=== PATIENT | female | born 1950 | race Caucasian/White ===

== ENCOUNTER 2017-03-12 14:41 | Observation (INO) ==
--- NOTE | 2017-03-12 15:29 | Emergency Department Note ---
Disposition Clinical Impression: Chest pain Qualifiers: Chest pain type: other chest pain Qualified Code(s): R07.89 - Other chest pain ; R07.8 - Other chest pain Disposition: Admitted As Inpatient Condition: Fair Chest Pain HPI - General Chief Complaint: ED Chest Pain Stated Complaint: CP Time Seen by Provider: 03/12/17 14:50 Source: patient, EMS Limitations: no limitations Vital Signs Reviewed: Yes Nursing Notes Reviewed: Yes - History of Present Illness HPI Narrative: Presents with chest pain which is sharp and lasted for 20 minutes and is now resolved. Started at about 2:15 today. The pain is pleuritic. Exertional in the sense started when she was walking to get the mail at her daughter's house. Does have associated diaphoresis and dyspnea . No radiation. No pain or swelling of the lower extremities. No change when she rotates her torso and denies any history of chest wall strain. Social history: No smoking. Family history: Negative for heart disease Severity scale (1-10): 2 - Related Data Home Medications Medication Instructions Recorded Confirmed Aspirin Enteric Coated [Aspirin EC] 81 mg PO DAILY 03/12/17 03/12/17 Baclofen [Lioresal] 10 mg PO HS 03/12/17 03/12/17 Levothyroxine [Synthroid] 125 mcg PO 0630 03/12/17 03/12/17 Meloxicam [Mobic] 15 mg PO DAILY 03/12/17 03/12/17 Pravastatin Sodium [Pravachol] 20 mg PO HS 03/12/17 03/12/17 Allergies Allergy/AdvReac Type Severity Reaction Status Date / Time etodolac [From Lodine] Allergy Hives Verified 10/29/16 20:55 Review of Systems: Constitutional: No fever Vision: No blurred vision ENT: + rhinorrhea Respiratory: No cough Allergic: No allergies : No blood in urine GI: No blood in stool Hematologic: No bruising Dermatologic: No skin rash Musculoskeletal: No pain in the extremities Neuro: No numbness of the extremities Chest Pain PMH - Past Medical History Medical history: Reports: hyperlipidemia, thyroid disease Psychiatric history: Reports: 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 - Social History Smoking Status: Never smoker Alcohol use: Reports: none Drug use: Reports: none Physical Exam CONSTITUTIONAL: Well-appearing; well-nourished; A&O X 3, in no apparent distress HEAD: Normocephalic; atraumatic EYES: PERRL, no scleral icterus NOSE: The nose is normal in appearance without rhinorrhea NECK: No JVD or distended neck veins RESP: Normal chest excursion with respiration; breath sounds clear and equal bilaterally; no wheezes, rhonchi, or rales CARD: Regular rhythm, without murmurs, rub or gallop ABD: Non-distended; non-tender, soft, without rigidity, rebound or guarding,no pulsatile mass CHEST: Normal appearance. Does have significant pain with palpation anterior chest wall with does cause her to draw and examined facial wincing SKIN: Normal for age and race; warm and dry without diaphoresis ; no apparent lesions EXTREMITIES: Pulses are 2 plus and equal times 4 extremities, no peripheral edema or calf muscle pain - General Limitations: no limitations General appearance: alert, in no apparent distress Course Vital Signs Temperature 98.4 F 03/12/17 14:42 Pulse Rate 77 03/12/17 14:42 Respiratory Rate 18 03/12/17 14:42 Blood Pressure 134/106 03/12/17 14:42 O2 Sat by Pulse Oximetry 95 03/12/17 14:42 Temperature 98.4 F 03/12/17 14:42 Pulse Rate 85 03/12/17 18:45 Respiratory Rate 18 03/12/17 18:45 Blood Pressure 122/74 03/12/17 18:45 O2 Sat by Pulse Oximetry 95 03/12/17 18:45 Oxygen Delivery Oxygen Delivery Room Air Chest Pain - MDM Narrative Medical decision making narrative: I did review the patient's EKG which shows normal sinus rhythm with rate of 72 without acute ischemic change. The patient does have labs ordered which are pending. This point symptoms are more suggestive of musculoskeletal pain however results are pending. She will be watched closely on a historical records administrator and pulse oximeter. 1530 - Medical Records Medical records reviewed: Yes I reviewed the patient's medical records. - Lab Data Lab results reviewed: Yes I reviewed the patient's lab results. Result diagrams: 03/12/17 15:24 03/12/17 15:24 Lab Results 03/12/17 03/12/17 03/12/17 Range/Units 15:24 15:24 15:24 WBC 6.6 (4.3-11.1) K/mcL RBC 4.62 (3.82-4.97) M/mcL Hgb 12.8 (11.5-15.4) g/dL Hct 41.0 (35.3-44.9) % MCV 88.7 (83.0-100.0) fL MCH 27.7 L (28.0-33.3) pg MCHC 31.2 L (31.6-35.5) g/dL RDW 14.5 (11.5-14.5) % Plt Count 194 (140-400) K/mcL MPV 11.0 (9.4-12.4) fL Immature Gran % 0.3 (0-4) % Seg Neutrophils % 68.4 % Lymphocytes % 16.6 % Monocytes % 7.5 % Eosinophils % 6.1 % Basophils % 1.1 % Neutrophils # 4.5 (1.6-8.9) K/mcL Lymphocytes # 1.1 (0.6-4.6) K/mcL Monocytes # 0.5 (0.0-1.3) K/mcL Eosinophils # 0.4 (0.0-0.6) K/mcL Basophils # 0.1 (0.0-0.2) K/mcL D-Dimer (0-500) ng/mLFEU Sodium 141 (136-145) mEq/L Potassium 4.2 (3.5-4.5) mEq/L Chloride 108 (98-109) mEq/L Carbon Dioxide 26 (19-29) mEq/L BUN 25 H (7-20) mg/dL Creatinine 0.77 (0.57-1.11) mg/dL Est GFR ( Amer) > 60 (> 60) Est GFR (Non-Af Amer) > 60 (> 60) BUN/Creatinine Ratio 32 H (6-26) Glucose 97 (70-99) mg/dL Calculated Osmolality 296 (280-300) Calcium 9.0 (8.6-10.8) mg/dL Troponin I 0.00 (0-0.03) ng/mL 03/12/17 Range/Units 15:26 WBC (4.3-11.1) K/mcL RBC (3.82-4.97) M/mcL Hgb (11.5-15.4) g/dL Hct (35.3-44.9) % MCV (83.0-100.0) fL MCH (28.0-33.3) pg MCHC (31.6-35.5) g/dL RDW (11.5-14.5) % Plt Count (140-400) K/mcL MPV (9.4-12.4) fL Immature Gran % (0-4) % Seg Neutrophils % % Lymphocytes % % Monocytes % % Eosinophils % % Basophils % % Neutrophils # (1.6-8.9) K/mcL Lymphocytes # (0.6-4.6) K/mcL Monocytes # (0.0-1.3) K/mcL Eosinophils # (0.0-0.6) K/mcL Basophils # (0.0-0.2) K/mcL D-Dimer 2601 H (0-500) ng/mLFEU Sodium (136-145) mEq/L Potassium (3.5-4.5) mEq/L Chloride (98-109) mEq/L Carbon Dioxide (19-29) mEq/L BUN (7-20) mg/dL Creatinine (0.57-1.11) mg/dL Est GFR ( Amer) (> 60) Est GFR (Non-Af Amer) (> 60) BUN/Creatinine Ratio (6-26) Glucose (70-99) mg/dL Calculated Osmolality (280-300) Calcium (8.6-10.8) mg/dL Troponin I (0-0.03) ng/mL - Radiology Data Radiology results reviewed: Yes I reviewed the patient's radiology results.
[2017-03-12 15:35] LABS: Basophils # 0.1 K/mcL (0.0-0.2); Basophils % 1.1 %; Eosinophils # 0.4 K/mcL (0.0-0.6); Eosinophils % 6.1 %; Hemoglobin 12.8 g/dL (11.5-15.4); Immature Granulocytes % 0.3 % (0-4); Lymphocytes # 1.1 K/mcL (0.6-4.6); Lymphocytes % 16.6 %; Mean Corpuscular HGB Conc 31.2 g/dL (31.6-35.5); Mean Corpuscular Hemoglobin 27.7 pg (28.0-33.3); Mean Corpuscular Volume 88.7 fL (83.0-100.0); Monocytes # 0.5 K/mcL (0.0-1.3); Monocytes % 7.5 %; Neutrophils # 4.5 K/mcL (1.6-8.9); Platelet Count 194 K/mcL (140-400); Red Blood Count 4.62 M/mcL (3.82-4.97); Red Cell Distribution Width 14.5 % (11.5-14.5); Segmented Neutrophils % 68.4 %
[2017-03-12 15:45] LABS: Carbon Dioxide 26 mEq/L (19-29); Chloride 108 mEq/L (98-109); Potassium 4.2 mEq/L (3.5-4.5); Sodium 141 mEq/L (136-145)
[2017-03-12 15:57] LABS: BUN/Creatinine Ratio 32 (6-26); Glucose 97 mg/dL (70-99); Osmolality,Calculated 296 (280-300); eGFR For African Americans > 60 (> 60); eGFR For Non-African Americans > 60 (> 60)
[2017-03-12 15:58] LABS: Blood Urea Nitrogen 25 mg/dL (7-20)
[2017-03-12] MEDS ORDERED: Azithromycin 500 MG in D5% in Water 250 ML IVPB ONE (18:32)
[2017-03-12] MEDS ORDERED: *HR* HYDROcodone/Acet 5/325 mg TABLET PO PRN (20:29)
[2017-03-12] MEDS ORDERED: Naloxone 0.4 MG/ML INJ IVP PRN (20:29)
[2017-03-12] MEDS ORDERED: *HR* Morphine 2 MG/ML SYRINGE IVP PRN (20:29)
--- NOTE | 2017-03-12 20:45 | Internal Med History&Physical ---
Addendum entered and electronically signed by Mamadou Hare CNP 22:27: Time of encounter 19:45 Original Note: <Mamadou Hare - Last Filed: 03/12/17 21:11> Date of Encounter: 03/12/17 Time of Encounter: 07:45 Assessment and Plan (1) Chest pain Current visit: Yes Status: Acute Patient presents with chief complaint of chest pain that she stated started shortly after lunch and was sharp, stabbing, and constant in nature. She also describes pain is pleuritic. Patient also experienced SOB and diaphoresis with chest pain but denied radiation to neck, back, or arms. Patient denies any history of cardiac issues. Patient placed on continuous cardiac telemetry for EDV echocardiogram, trending troponins 2, supplemental O2 with continuous SPO2 monitoring, and bed rest with bathroom privileges. Will consider cardiology consult based on echocardiogram results. Patient to be monitored closely for signs of increased cardiac and/or respiratory distress. Patient placed as falls precautions/[id number]/bed rest with bathroom privileges with assist due to current symptoms. Qualifiers: Chest pain type: chest pain on breathing Qualified Code(s): R07.1 - Chest pain on breathing (2) Pneumonia Current visit: Yes Status: Acute Patient presents with suspected pneumonia due to overall impressions of CT taken today chest. Findings state nonspecific mosaic perfusion pattern likely due to small airway disease, subtle right upper lobe airspace disease could be due to developing pneumonia, and 2 solid subcentimeter right pulmonary nodules present. Patient placed on IV azithromycin and ED. Will continue IV azithromycin 500 mg every 24 daily for possible infection coverage. Qualifiers: Pneumonia type: due to unspecified organism Laterality: right Lung location: upper lobe of lung Qualified Code(s): J18.1 - Lobar pneumonia, unspecified organism (3) SOB (shortness of breath) Current visit: Yes Status: Acute Patient presents with shortness of breath she reports is associated with her chest pain. Currently, chest pain is resolved as is SOB. DuoNeb's every 6 ordered. Supplemental O2 with titration if SPO2 less than 92% ordered as well as continuous SPO2 monitoring. Patient placed as falls precautions/up with assist/bedrest with bathroom privileges with assist only due to SOB. Will monitor patient and vital signs. (4) HLD (hyperlipidemia) Current visit: Yes Status: Chronic Patient presents with history of chronic hyperlipidemia. Lipid panel ordered. We will continue patient's pravastatin. Qualifiers: Hyperlipidemia type: pure hypercholesterolemia Qualified Code(s): E78.00 - Pure hypercholesterolemia, unspecified; E78.0 - Pure hypercholesterolemia (5) Thyroid disease Current visit: Yes Status: Chronic Patient presents with history of chronic thyroid disease. Will continue patient 's Synthroid. (6) DVT prophylaxis Current visit: Yes Status: Acute Patient placed on DVT prophylaxis due to current admission protocol and current bed rest status. Heparin 5,000 units SQ Q8 ordered. Internal Medicine - H&P: HPI Chief complaint: Chest pain Admitted From: Emergency Dept Plans for Post Hospital Care: Home History of present illness: Mrs. Cardenas is a 66 year old female presents from the ED with chief complaint of chest pain. Patient reports after lunch she began feeling sharp, stabbing, and constant pain in her chest. She also states she experienced shortness of breath, nausea, and diaphoresis with the pain. She also describes pain is pleuritic. She denies radiation to her shoulder arm or back. She does report when she was transported, she was given 3 aspirin which seemed to help with the pain. Patient denies any history of cardiac issues. Patient denies generalized weakness, abdominal pain, vomiting, recent illness, cough, numbness , tingling, presyncope, syncope, or unusual bleeding. Patient is at moderate risk for cardiac event based on symptoms as well as risk factors of hyperlipidemia and morbid obesity. Patient be placed as observation status with continuous cardiac telemetry, supplemental O2 with continuous SPO2 monitoring, order for EV echocardiogram, continuation of aspirin therapy, as well as IV azithromycin every 24 for suspected pneumonia based on CT chest results. Patient to be monitored closely for signs of increasing cardiac and/ or respiratory distress. Time spent with patient greater than 40 minutes. Past Med Surg Social Fam HX - Past Medical History Source: patient Medical history: hyperlipidemia, thyroid disease Psychiatric history: no psych history - Past Surgical History Surgical History: appendectomy, , orthopedic, other (Bilateral heel spur removal, bilateral knee replacement, bilateral carpal tunnel), other ( Tubal ligation) - Social History Smoking Status: Never smoker Smokeless Tobacco Status: No Alcohol use: none Drug use: none Current living situation: Home, With Family Activity Level: Independent ambulation Recent Out of Country Travel Within the Last 8 Weeks: No Exposure or Possible Exposure to Illness During Travel: No - Family History Father Race: Family Member Ethnicity: Non- Living Status: Age at : 70 Cause of : CO Hx Family Cardiac Disorders: Yes (CO, HD) Mother Race: Family Member Ethnicity: Non- Living Status: Age at : 58 Cause of : Bone cancer Hx Family Cardiac Disorders: Yes (HTN, HLD) Hx Family Cancer: Yes (Bone) Hx Family Endocrine Disorder: Yes (DM) Brother Race: Family Member Ethnicity: Non- Living Status: Age at : 60 Cause of : CO Hx Family Cardiac Disorders: Yes (HD) Internal Medicine - H&P: Meds Aspirin Enteric Coated [Aspirin EC] 81 mg PO DAILY 03/12/17 [History] Baclofen [Lioresal] 10 mg PO HS 03/12/17 [History] Levothyroxine [Synthroid] 125 mcg PO 0630 03/12/17 [History] Meloxicam [Mobic] 15 mg PO DAILY 03/12/17 [History] Pravastatin Sodium [Pravachol] 20 mg PO HS 03/12/17 [History] Allergies etodolac [From Lodine] Allergy (Verified 10/29/16 20:55) Hives All Systems PM: A 10-system review of systems was performed and is negative for pertinent findings except as documented above in the HPI. - Constitutional Constitutional: no chills, no fever(s), no night sweats - EENT Eyes: no change in vision, no discharge, no pain, no photophobia Ears: no ear discharge, no ear pain, no tinnitus Nose, mouth and throat: no dysphagia, no nasal discharge, no neck pain, no sore throat - Breasts Breasts: as per HPI - Cardiovascular Cardiovascular ROS IM: as per HPI, chest pain, dyspnea - Respiratory Respiratory: as per HPI, dyspnea - Gastrointestinal Gastrointestinal: no abdominal pain, no diarrhea, no hematemesis, no hematochezia, no melena, no nausea, no vomiting - Genitourinary Genitourinary: no change in urinary stream, no dysuria, no flank pain, no hematuria Menstruation: as per HPI - Musculoskeletal Musculoskeletal ROS IM: no numbness, no tingling - Integumentary Integumentary IM: no rash, no unusual bruising - Neurological Neurological ROS: no confusion, no convulsions, no focal weakness, no numbness, no tingling, no tremor(s) - Psychiatric Psychiatric: as per HPI - Endocrine Endocrine IM: as per HPI - Hematologic/Lymphatic Hematologic/Lymphatic: no easy bruising - Allergic/Immunologic Allergic/Immunologic: as per HPI - Constitutional Vitals: Temp Pulse Resp BP Pulse Ox 97.7 F 82 16 116/77 95 03/12/17 20:03 03/12/17 20:03 03/12/17 20:03 03/12/17 20:03 03/12/17 20:03 General appearance: Present: cooperative, A&O X 3, morbidly obese, pleasant, no acute distress, answers questions appropriately - Head Head exam: Present: atraumatic, normocephalic - Eye Eye exam: Present: PERRL, conjuntiva pink, sclera anicteric Pupils: Present: PERRL - ENT ENT exam: Present: normal exam, normal external ear exam - Neck Neck exam general surgery: Present: normal inspection, supple, trachea midline - Respiratory Respiratory exam: Present: CTAB. Absent: accessory muscle use, rales, rhonchi, wheezes - Cardiovascular Cardiovascular exam: Present: RRR, +S1, +S2. Absent: diastolic murmur, gallop, rubs, systolic murmur - GI/Abdominal GI/Abdominal exam: Present: normal bowel sounds, soft, no peritoneal signs. Absent: distended, tenderness - Rectal Rectal exam: Present: deferred - Additional comments: exam deferred. - Extremities Exam Extremities exam: Present: warm, radial pulses palpable and symetrical. Absent : calf tenderness, cyanotic, pedal edema - Back Exam Back exam: Present: normal inspection - Neurological Exam Neurological exam: Present: CN II-XII intact, oriented X3, no focal deficits. Absent: pronater drift, facial droop, speech deficit - Psychiatric Psychiatric exam: Present: normal affect, normal mood - Skin Skin exam: Present: dry, intact Internal Med - H&P Results - Labs CBC & Chem 7: 03/12/17 15:24 03/12/17 15:24 - EKG Data EKG shows normal: sinus rhythm - EKG Data Prior EKG available for review: yes EKG comments: 03/12/17 20:57 EKG dated 11/27/14 shows sinus rhythm with sinus arrhythmia, low QRS voltage in precordial leads, possible right ventricular conduction delay, possible anterior myocardial infarction (probably old). EKG dated 03/12/17 shows sinus rhythm with first-degree AV block with occasional supraventricular premature complexes, borderline left axis deviation , low QRS voltage in precordial leads. - Diagnostic Studies Chest x-ray Additional comments: Impressions Chest X-Ray 03/12/17 15:13 IMPRESSION: No acute cardiopulmonary abnormality. D/ / Brandon White MD / Brandon White MD Interpreting Provider: Brandon White MD CT scan - chest Additional comments: Impressions Chest CTA 03/12/17 16:47 IMPRESSION: 1. Nonspecific mosaic perfusion pattern likely due to small airway disease. 2. Subtle right upper lobe airspace disease could be due to developing pneumonia. 3. 2 solid subcentimeter right pulmonary nodules. RECOMMENDATION: Fleischner Society guidelines for follow-up and management of incidentally detected pulmonary nodules: Multiple Solid Nodules: Nodule size less than 6 mm In a low-risk patient, no routine follow-up. In a high-risk patient, optional CT at 12 months. Radiology 2017 http://pubs.rsna.org/doi/full/10.1148/[email or web address] D/ / Dave Catherine MD / Dave Catherine MD Interpreting Provider: Dave Catherine MD <Jay Pritchard - Last Filed: 03/13/17 00:42> Date of Encounter: 03/13/17 Internal Medicine - H&P: HPI History of present illness: Ms. Cardenas is a 66 year old female All Systems PM: A 10-system review of systems was performed and is negative for pertinent findings except as documented above in the HPI. - Constitutional Vitals: Temp Pulse Resp BP Pulse Ox 98.0 F 84 18 94/58 91 03/12/17 23:04 03/12/17 23:04 03/12/17 23:04 03/12/17 23:04 03/12/17 23:04 Internal Med - H&P Results - Labs CBC & Chem 7: 03/12/17 15:24 03/12/17 15:24 Labs: Cardiac Enzymes 03/12/17 Range/Units 22:03 Troponin I 0.00 (0-0.03) ng/mL - Attending Attestation I have seen and examined the patient. I have discussed the patient with Dr. Mamadou Hare TEST AND BALANCE ENGINEER. I have reviewed the orders and the note. Patient is a 66-year-old female with a past history of hyperlipidemia and thyroid disease. She presents to the ED with complaints of chest pain which started this afternoon. Patient also experienced shortness of breath nausea and diaphoresis. She was initially given aspirin. She was then transported to the ED. Patient states the pain was sharp and stabbing and constant mainly on the left side. No radiation. Patient is being admitted for chest pain to rule out ACS. Initial workup including EKG shows normal sinus rhythm with no acute changes and troponin is negative. D-dimer was found to be [address] angiogram was negative for PE. There is however suspicion for pneumonia. Patient will be on IV antibiotics empirically. Stress test and echocardiogram are pending. Patient explained about condition and plan of care. Understood and agreed. No unanswered questions. CODE STATUS full code. Heart rate 84, blood pressure 94/58, O2 sat 91% on room air, heart S1-S2 positive no murmurs or rubs. Lungs bilateral good entry no wheeze or crackle. Abdomen soft nontender no masses or guarding. Extremities pulses strong and regular no edema.
[2017-03-12] MEDS: Pantoprazole 40 MG VIAL IVP SCH (21:25)
[2017-03-12] MEDS: Baclofen 10 MG TABLET PO SCH (21:25)
[2017-03-12] MEDS: *HR* Heparin 5,000 UNIT/ML VIAL SQ SCH (21:25)
[2017-03-12] MEDS: Ipratropium/Albuterol Neb 3 ML IH SCH (22:22)
[2017-03-13] MEDS: Ipratropium/Albuterol Neb 3 ML IH SCH ×4 (03:50→22:25)
[2017-03-13 04:29] LABS: Basophils # 0.1 K/mcL (0.0-0.2); Basophils % 1.1 %; Eosinophils # 0.4 K/mcL (0.0-0.6); Eosinophils % 5.1 %; Hematocrit 37.9 % (35.3-44.9); Immature Granulocytes % 0.3 % (0-4); Lymphocytes # 1.1 K/mcL (0.6-4.6); Lymphocytes % 15.1 %; Mean Corpuscular HGB Conc 31.7 g/dL (31.6-35.5); Mean Corpuscular Hemoglobin 27.8 pg (28.0-33.3); Mean Corpuscular Volume 87.9 fL (83.0-100.0); Mean Platelet Volume 11.3 fL (9.4-12.4); Monocytes # 0.5 K/mcL (0.0-1.3); Monocytes % 6.9 %; Neutrophils # 5.4 K/mcL (1.6-8.9); Platelet Count 184 K/mcL (140-400); Red Blood Count 4.31 M/mcL (3.82-4.97); Red Cell Distribution Width 14.5 % (11.5-14.5); Segmented Neutrophils % 71.5 %
[2017-03-13 04:41] LABS: INR 1.1; Prothrombin Time 12.2 Seconds (9.4-12.1)
[2017-03-13 04:44] LABS: Activated Partial Thrombo Time 31.1 Seconds (26.0-36.0)
[2017-03-13 04:49] LABS: BUN/Creatinine Ratio 28 (6-26); Blood Urea Nitrogen 19 mg/dL (7-20); Calcium 8.9 mg/dL (8.6-10.8); Carbon Dioxide 29 mEq/L (19-29); Chloride 107 mEq/L (98-109); Chol/HDL Ratio 3.9 (0-4.9); Cholesterol 124 mg/dL (< 200); Glucose 83 mg/dL (70-99); HDL Cholesterol 32 mg/dL (40-59); LDL Cholesterol,Calculated 80 mg/dL (0-99); Magnesium 1.8 mg/dL (1.6-2.6); Osmolality,Calculated 293 (280-300); Potassium 3.9 mEq/L (3.5-4.5); Sodium 141 mEq/L (136-145); Triglycerides 61 mg/dL (< 150); eGFR For African Americans > 60 (> 60); eGFR For Non-African Americans > 60 (> 60)
[2017-03-13] MEDS: *HR* Heparin 5,000 UNIT/ML VIAL SQ SCH ×3 (05:48→21:06)
[2017-03-13] MEDS ORDERED: Regadenoson 0.4 MG/5 ML SYRINGE IVP ONE (05:52)
--- NOTE | 2017-03-13 12:26 | Electrocardiograph Report ---
[place] [id number] Test Date: 2017-03-12 Pat Name: Jimena Cardenas Department: 105 Room: 3B Gender: F Double Back Operator: CHERI : 1950 Requested By: Iker Arellano Order Number: [id number] Reading MD: Beni Burr MD Measurements Intervals [place] Rate: 72 P: 81 AK: 215 QRS: -25 QRSD: 80 T: 3 QT: 381 QTc: 405 Interpretive Statements SINUS RHYTHM WITH FIRST DEGREE AV BLOCK WITH OCCASIONAL SUPRAVENTRICULAR PREMATURE COMPLEXES BORDERLINE LEFT AXIS DEVIATION LOW QRS VOLTAGE IN PRECORDIAL LEADS Electronically Signed On 03-13-2017 12:24:28 EDT by Beni Burr MD
[2017-03-13] MEDS: Aspirin Enteric Coated 81 MG Tablet PO SCH (12:52)
[2017-03-13] MEDS: Pantoprazole 40 MG VIAL IVP SCH (12:52)
--- NOTE | 2017-03-13 18:11 | Internal Med Progress Note ---
Date of Encounter: 03/13/17 Time of Encounter: 10:30 - Assessment and plan (1) Chest pain Current Visit: Yes Status: Acute Assessment and plan: Patient reports sharp stabbing chest pain that began after lunch on day of admission. She reported associated chest pain, nausea, shortness of breath, and diaphoresis. She denies any radiation of the pain. Denies any recent illness or sick contacts or fever. Pain is not reproducible with deep inspiration or movement. Patient is a 2 day stress test. D-dimer was elevated at 2601. CTA was negative for PE. Troponin was negative 3. Continue typer labs Stress test results. Chest X-Ray 03/12/17 15:13 IMPRESSION: No acute cardiopulmonary abnormality. D/ / Brandon White MD / Brandon White MD Interpreting Provider: Brandon White MD Chest CTA 03/12/17 16:47 IMPRESSION: 1. Nonspecific mosaic perfusion pattern likely due to small airway disease. 2. Subtle right upper lobe airspace disease could be due to developing pneumonia. 3. 2 solid subcentimeter right pulmonary nodules. RECOMMENDATION: Fleischner Society guidelines for follow-up and management of incidentally detected pulmonary nodules: Multiple Solid Nodules: Nodule size less than 6 mm In a low-risk patient, no routine follow-up. In a high-risk patient, optional CT at 12 months. Radiology 2017 http://pubs.rsna.org/doi/full/10.1148/radiol.[email or web address] D/ / Dave Catherine MD / Dave Catherine MD Interpreting Provider: Dave Catherine MD Qualifiers: Chest pain type: chest pain on breathing Qualified Code(s): R07.1 - Chest pain on breathing (2) SOB (shortness of breath) Current Visit: Yes Status: Acute Assessment and plan: Plan as above. (3) HLD (hyperlipidemia) Current Visit: Yes Status: Chronic Assessment and plan: Lipids within normal limits. Continue home dose of Zocor. Qualifiers: Hyperlipidemia type: pure hypercholesterolemia Qualified Code(s): E78.00 - Pure hypercholesterolemia, unspecified; E78.0 - Pure hypercholesterolemia (4) Thyroid disease Current Visit: Yes Status: Chronic Assessment and plan: Chronic. Continue home medication. (5) Pneumonia Current Visit: Yes Status: Acute Assessment and plan: Community-acquired pneumonia. Patient being treated with IV Rocephin and Zithromax. Patient denies fever or cough. Curb 65 score is 1 for age greater than 65. Lungs are diminished with faint wheezing heard posteriorly lung magdaleno. She has been afebrile, pulse is within normal limits, no leukocytosis. Continue telemetry Oxygen as needed. Titrate to maintain sats greater than 92%. Continue IV antibiotics Qualifiers: Pneumonia type: due to unspecified organism Laterality: right Lung location: upper lobe of lung Qualified Code(s): J18.1 - Lobar pneumonia, unspecified organism (6) DVT prophylaxis Current Visit: Yes Status: Acute Assessment and plan: Heparin subcutaneous. - Time Spent With Patient less than 15 minutes - Subjective Interval history: Patient was seen and assessed about 10:30 this morning. She reports a stabbing chest pain with nausea, shortness of breath, and diaphoresis that lasted about 15-20 minutes. It was relieved with 3 baby aspirin. She is pain-free currently. She denies any cough or fever in the last week or now. Patient states that she lives alone and she has not had any sick contacts. Patient is a 2 day stress test most likely will be discharged tomorrow. - Constitutional Vitals: Temp Pulse Resp BP Pulse Ox 97.9 F 74 16 96/66 93 03/13/17 15:06 03/13/17 15:06 03/13/17 15:06 03/13/17 15:06 03/13/17 15:06 General appearance: Present: cooperative, A&O X 3, morbidly obese, pleasant, no acute distress, answers questions appropriately - Head Head exam: Present: normal inspection - Eye Eye exam: Present: normal appearance, conjuntiva pink - ENT ENT exam: Present: normal external ear exam - Neck Neck exam general surgery: Present: normal inspection. Absent: lymphadenopathy , tenderness - Respiratory Respiratory exam: Present: wheezes. Absent: decreased breath sounds, rales, respiratory distress, rhonchi - Cardiovascular Cardiovascular exam: Present: RRR, +S1, +S2. Absent: diastolic murmur, systolic murmur - GI/Abdominal GI/Abdominal exam: Present: distended, normal bowel sounds, soft. Absent: tenderness - Extremities Exam Extremities exam: Present: warm, radial pulses palpable and symetrical. Absent : mottling, pedal edema, tenderness - Neurological Exam Neurological exam: Present: alert, oriented X3, no focal deficits, strengths equal and symetr throughout. Absent: facial droop, speech deficit - Skin Skin exam: Present: dry, intact, warm. Absent: rash Internal Medicine: Result - Labs CBC & Chem 7: 03/13/17 03:34 03/13/17 03:34 Labs: Short CBC 03/13/17 Range/Units 03:34 WBC 7.5 (4.3-11.1) K/mcL Hgb 12.0 (11.5-15.4) g/dL Hct 37.9 (35.3-44.9) % Plt Count 184 (140-400) K/mcL Neutrophils # 5.4 (1.6-8.9) K/mcL BMP 03/13/17 03:34 Sodium 141 Potassium 3.9 Chloride 107 Carbon Dioxide 29 BUN 19 Creatinine 0.69 Glucose 83 Calcium 8.9 Cardiac Enzymes 03/12/17 03/13/17 Range/Units 22:03 03:34 Troponin I 0.00 0.00 (0-0.03) ng/mL - ABG Interpretation ABG results: PT/INR, D-dimer PT 12.2 Seconds (9.4-12.1) H 03/13/17 03:34 D-Dimer 2601 ng/mLFEU (0-500) H 03/12/17 15:26 Consult Discharge Plan - Plan Referrals: Jennifer Donald, TEAM COORDINATOR [Primary Care Provider] -
[2017-03-13] MEDS: Baclofen 10 MG TABLET PO SCH (21:05)
[2017-03-13] MEDS: Azithromycin 500 MG in D5% in Water 250 ML IVPB SCH (21:05)
[2017-03-13] MEDS: Ondansetron 4 MG/2 ML VIAL IVP PRN (21:59)
[2017-03-14] MEDS: Ipratropium/Albuterol Neb 3 ML IH SCH ×4 (04:03→21:45)
[2017-03-14] MEDS: *HR* Heparin 5,000 UNIT/ML VIAL SQ SCH ×3 (06:06→21:42)
[2017-03-14] MEDS: Acetaminophen 325 MG TABLET PO PRN (06:38)
[2017-03-14] MEDS: Aspirin Enteric Coated 81 MG Tablet PO SCH (09:15)
[2017-03-14] MEDS: Ondansetron 4 MG/2 ML VIAL IVP PRN (09:15)
[2017-03-14] MEDS: Pantoprazole 40 MG VIAL IVP SCH (09:17)
--- NOTE | 2017-03-14 11:18 | Nuclear Medicine Stress Report ---
Regadenoson Nuclear 2 Name: Jimena Cardenas Date of Study: 03/13/2017 Date: 1950 Ht: 64.0 in Medical Record#: [id number] Age: 66 Wt: 265.0 lb Gender: Female Order #: [id number] Location: [facility] Room: [facility] Supervising Provider: Debbie Vega CNP Reading Physician: Iker Cruz MD, [facility] Ordering Physician: Danielle Francisco CNP Primary Care Physician: Jennifer Donald CNP Stress Technologist: Billy Naqvi, THREAD MACHINE OPERATOR, [facility] Truck Service Technician: Erik Flores Indications: Chest Pain Impression: Gated LVEF = 63%. There is a small sized, mild-moderate intensity, predominantly reversible perfusion defect involving the basal-mid inferoseptum. Findings are consistent with a small area of reversible myocardial ischemia. Ordering provider was notified of the abnormal results via [employer] message. History: Hypercholesteremia Stress Test Summary: Stress Test Type: Pharmacologic Regadenoson 0.4mg/5ml given IV Baseline Information: Initial Heart Rate: 78 Blood Pressure: 102/68 Stress Information: Test Terminated Due to (primary): As per protocol Maximum Blood Pressure: 102/64 Maximum Heart Rate: 95 Percent Maximum Heart Rate Achieved: 62 Double Product: [id number] Symptoms: Chest pain, Shortness of breath Nuclear Summary: SPECT myocardial perfusion imaging using Tc99m Sestamibi given intravenously was performed at rest and following cardiac stress testing. The resting images were obtained following initial dose of 30.8 mCi. Following stress an additional dose of 35.9 mCi was given at peak exercise or 30 seconds post regadenoson infusion. Findings: Stress Note * Resting ECG demonstrated sinus rhythm with PACs, poor r-wave progression, low voltage in precordial leads. * Occasional PACs noted prior to exam beginning, during stress, and in recovery. Rare PVCs were also noted. * Patient had mild chest pain with regadenoson. This is a non-specific finding. * No significant ECG changes with regadenoson. Hemodynamic responses * Normal hemodynamic responses to pharmacologic stress. Study Quality * Study quality is average. Gated EF % * Gated LVEF = 63%. Left Ventricle * The left ventricle is not dilated. * Normal Segmental Perfusion in rest. * There is a small sized, mild-moderate intensity, predominantly reversible perfusion defect involving the basal-mid inferoseptum. Findings are consistent with a small area of reversible myocardial ischemia. * All other segmental perfusion normal in stress. TID * No evidence of transient ischemic dilatation. Updated by Iker Cruz MD, [facility] on 03/14/2017 11:14:17 AM electronically signed on 03/14/2017 11:14:49 AM with status of Final
--- NOTE | 2017-03-14 13:26 | Cardiology Consult Note ---
Date of Encounter: 03/14/17 Time of Encounter: 12:30 Assessment and Plan (1) Chest pain Current Visit: Yes Status: Acute Per cardiology: -Admitted with chest pain that occured while walking to the mail box. Denies aggravating or alleviating factors. -Denies current chest pain. -Troponins negative x3. -ECG with no ischemic changes. -[facility] 2010 with 10-20% diffusely diseased mid circumflex -Echo 03/13/17 with LVEF 60%, no significant valvular dysfunction, all visualized ley with normal motion. -Nuclear stress 03/13/17 with LVEF 63%, small sized mild-moderate intensity, predominately reversible perfusion defect involving basal-mid inferoseptum. Findings consistent with small area of reversible myocardial ischemia. -ON asa and statin. -Recommend medical management at this time with close outpatient follow up. Discussed at length with patient and patient agreeable for outpatient follow up. -Educated patient to return to ER if she has chest pain. -Unable to add beta gracy due to BPs 90-100s systolic. -Cardiology will sign off and will follow in outpatient setting. Follow up set. Qualifiers: Chest pain type: other chest pain Qualified Code(s): R07.89 - Other chest pain; R07.8 - Other chest pain Discussion w patient/family: The assessment and plan as outlined above was discussed with the patient who expressed understanding and agreement. All questions were answered. Thank you for involving us in the care of your patient. Please call with any questions. Discussed and reviewed with . History of Present Illness Consult date: 03/14/17 Requesting physician: Danielle Francisco Consult reason: abnormal stress test Chief complaint: chest pain History of present illness: Ms. Cardenas is a 66 year old female with a relevant past medical history of HTN, hypothyroidism, obesity. Patient presented to [facility] with complaints of midsternal chest pain. Patient states pain started while walking to mail box. Patient denies aggravating or alleviating factors Patient denies shortness of breath or increased fatigue. Patient denies current chest pain. Past Med Surg Social Fam HX - Past Medical History Attestation: Yes The following information was validated with the patient. Source: patient, old records reviewed Medical history: hyperlipidemia, thyroid disease Psychiatric history: no psych history - Past Surgical History Surgical History: appendectomy, , orthopedic, other (Bilateral heel spur removal, bilateral knee replacement, bilateral carpal tunnel), other ( Tubal ligation) - Social History Smoking Status: Never smoker Smokeless Tobacco Status: No Alcohol use: none Drug use: none - Family History Father Race: Family Member Ethnicity: Non- Living Status: Age at : 70 Cause of : [place] Hx Family Cardiac Disorders: Yes ([place], HD) Mother Race: Family Member Ethnicity: Non- Living Status: Age at : 58 Cause of : Bone cancer Hx Family Cardiac Disorders: Yes (HTN, HLD) Hx Family Cancer: Yes (Bone) Hx Family Endocrine Disorder: Yes (DM) Brother Race: Family Member Ethnicity: Non- Living Status: Age at : 60 Cause of : [place] Hx Family Cardiac Disorders: Yes (HD) Medications and Allergies Aspirin Enteric Coated [Aspirin EC] 81 mg PO DAILY 03/12/17 [History] Baclofen [Lioresal] 10 mg PO HS 03/12/17 [History] Levothyroxine [Synthroid] 125 mcg PO 0630 03/12/17 [History] Meloxicam [Mobic] 15 mg PO DAILY 03/12/17 [History] Pravastatin Sodium [Pravachol] 20 mg PO HS 03/12/17 [History] Allergies etodolac [From Lodine] Allergy (Verified 10/29/16 20:55) Hives All Systems Review: A 10-system review of systems was performed and is negative for pertinent findings except as documented above in the HPI. - Cardiovascular Cardiovascular: as per HPI, chest pain with exertion Physical Examination Vital Signs, Last 4 Hours Temp Pulse Resp BP Pulse Ox 03/14/17 11:20 97.5 F L 75 16 110/65 96 General: Conversant, No Apparent Distress HEENT: Atraumatic, Normocephaly, Mucus Membranes Moist Neck: No JVD, Normal carotid pulses Cardiac: Reg Rate and Rhythm, Normal S1 and S2, No Murmur Lungs: Normal Breath Sounds, No Wheeze, Rales, Rhonchi Neuro: Alert and responsive, No focal deficits noted Abdomen: Soft, Non-Tender Skin: No rashes noted on visualized skin Musculoskeletal: No Chest Wall Tenderness Extremities: No Clubbing, No Cyanosis, No Edema, Normal Pulses Results 03/13/17 03:34 03/13/17 03:34 Active Medications Acetaminophen (Tylenol) 650 mg PO Q6HR PRN PRN Reason: Mild Pain (1-3) Stop: 09/11/17 20:30 Last Admin: 03/14/17 06:38 Dose: 650 mg Hydrocodone Bitart/Acetaminophen ([place] 5-325 Mg) 1 tab PO Q4HR PRN PRN Reason: Moderate Pain (4-6) Stop: 09/11/17 20:30 Albuterol/Ipratropium (Duoneb) 3 ml IH [id number] MAURA PRN Reason: Protocol Stop: 09/11/17 22:01 Last Admin: 03/14/17 10:57 Dose: Not Given Aspirin (Aspirin Ec) 81 mg PO DAILY [facility] Stop: 09/12/17 09:01 Last Admin: 03/14/17 09:15 Dose: 81 mg Baclofen (Lioresal) 10 mg PO HS [facility] Stop: 09/11/17 21:01 Last Admin: 03/13/17 21:05 Dose: 10 mg Heparin Sodium (Porcine) (Heparin) 5,000 unit SQ Q8HCO [facility] Stop: 09/11/17 22:01 Last Admin: 03/14/17 06:06 Dose: Not Given Azithromycin 500 mg/ Dextrose 250 mls @ 252 mls/hr IVPB Q24H [facility] Stop: 09/12/17 21:01 Last Infusion: 03/13/17 22:22 Dose: Infused Ceftriaxone Sodium 1,000 mg/ (Dextrose) 100 mls @ 200 mls/hr IVPB Q24H [facility] Stop: 09/12/17 09:01 Last Admin: 03/14/17 09:15 Dose: 200 mls/hr Levothyroxine Sodium (Synthroid) 125 mcg PO 0630 [facility] Stop: 09/12/17 06:31 Last Admin: 03/14/17 06:08 Dose: 125 mcg Morphine Sulfate (Morphine Sulfate) 2 mg IVP Q4HR PRN PRN Reason: Severe Pain (7-10) Stop: 09/11/17 20:30 Naloxone HCl (Narcan) 0.4 mg IVP Q2MIN PRN PRN Reason: Opioid Reversal Stop: 09/11/17 20:30 Ondansetron HCl (Zofran) 4 mg IVP Q8HR PRN PRN Reason: Nausea And Vomiting Stop: 09/11/17 20:30 Last Admin: 03/14/17 09:15 Dose: 4 mg Pantoprazole Sodium (Protonix) 40 mg IVP DAILY MAURA Stop: 09/11/17 20:31 Last Admin: 03/14/17 09:17 Dose: 40 mg Simvastatin (Zocor) 10 mg PO HS MAURA Stop: 09/11/17 21:01 Last Admin: 03/13/17 21:05 Dose: 10 mg Laboratory Tests 03/12/17 03/12/17 03/13/17 15:24 22:03 03:34 Hgb Potassium Creatinine Troponin I 0.00 0.00 0.00 Triglycerides Cholesterol LDL Cholesterol, Calc HDL Cholesterol 03/13/17 03/13/17 03:34 03:34 Hgb 12.0 Potassium 3.9 Creatinine 0.69 Troponin I Triglycerides 61 Cholesterol 124 LDL Cholesterol, Calc 80 HDL Cholesterol 32 L - Imaging and Cardiology Chest Xray: report reviewed Stress Test: report reviewed Echo: report reviewed Cardiac cath: report reviewed - EKG Interpretation EKG results cardiology: personally reviewed (ECG with sinus rhythm.), other ( Telemetry reviewed with average HR 66, sinus rhythm. PACs and PVCs noted.) Consult Discharge Plan - Plan Referrals: Jennifer Donald, PUMP ERECTOR HELPER [Primary Care Provider] -
--- NOTE | 2017-03-14 17:24 | Internal Med Progress Note ---
Date of Encounter: 03/14/17 Time of Encounter: 09:40 - Assessment and plan (1) Chest pain Current Visit: Yes Status: Acute Assessment and plan: Pt states that is chest pain free today. D-dimer was elevated at 2601. CTA was negative for PE. Troponin was negative 3. Echo 03/13/17 with LVEF 60%, no significant valvular dysfunction, all visualized ley with normal motion. Stress test resulted today. Gated LVEF = 63%. There is a small sized, mild- moderate intensity, predominantly reversible perfusion defect involving the basal-mid inferoseptum. Findings are consistent with a small area of reversible myocardial ischemia. Patient was seen by cardiology today. They recommended medical management continue her aspirin and statin. They were unable to add a beta gracy at this time due to low systolic blood pressures. Patient will follow up with cardiology in the outpatient setting. Continue bench worker hollow handle labs Continue aspirin and statin Outpatient follow-up with cardiology Chest X-Ray 03/12/17 15:13 IMPRESSION: No acute cardiopulmonary abnormality. D/ / Brandon White MD / Brandon White MD Interpreting Provider: Brandon White MD Chest CTA 03/12/17 16:47 IMPRESSION: 1. Nonspecific mosaic perfusion pattern likely due to small airway disease. 2. Subtle right upper lobe airspace disease could be due to developing pneumonia. 3. 2 solid subcentimeter right pulmonary nodules. RECOMMENDATION: Fleischner Society guidelines for follow-up and management of incidentally detected pulmonary nodules: Multiple Solid Nodules: Nodule size less than 6 mm In a low-risk patient, no routine follow-up. In a high-risk patient, optional CT at 12 months. Radiology 2017 http://pubs.rsna.org/doi/full/10.1148/radiol.4827306812 D/ / Dave Catherine MD / Dave Catherine MD Interpreting Provider: Dave Catherine MD Qualifiers: Chest pain type: other chest pain Qualified Code(s): R07.89 - Other chest pain; R07.8 - Other chest pain (2) SOB (shortness of breath) Current Visit: No Status: Acute Assessment and plan: Plan as above. Oxygen as needed, titrate to maintain sats > 92%. (3) HLD (hyperlipidemia) Current Visit: Yes Status: Chronic Assessment and plan: Lipids within normal limits. Continue home dose of Zocor. Qualifiers: Hyperlipidemia type: pure hypercholesterolemia Qualified Code(s): E78.00 - Pure hypercholesterolemia, unspecified; E78.0 - Pure hypercholesterolemia (4) Thyroid disease Current Visit: Yes Status: Chronic Assessment and plan: Chronic. Continue home medication. (5) Pneumonia Current Visit: Yes Status: Acute Assessment and plan: Community-acquired pneumonia. Patient being treated with IV Rocephin and Zithromax. Patient denies fever or cough. Curb 65 score is 1 for age greater than 65. Lungs are diminished and clear. She has been afebrile, pulse is within normal limits, no leukocytosis. Continue telemetry Oxygen as needed. Titrate to maintain sats greater than 92%. Continue IV antibiotics Qualifiers: Pneumonia type: due to unspecified organism Laterality: right Lung location: upper lobe of lung Qualified Code(s): J18.1 - Lobar pneumonia, unspecified organism (6) DVT prophylaxis Current Visit: Yes Status: Acute Assessment and plan: Heparin subcutaneous 3 times daily. - Time Spent With Patient less than 15 minutes - Subjective Interval history: Patient was seen and assessed at 9:40 AM. She was resting quietly and stated that she was feeling better. She had a headache after her stress test. She rested in a darkened room and stated that she was hungry. I gave her a sandwich and some pudding and reassesed her later and she said that it was gone and that she was feeling better. I saw her again in the early afternoon at the request of her daughter. She states that the pt is becoming unable to care for herself at home due to weakness and dyspnea. Daughter states that she would like for pt to go to assisted living. Pt reluctantly agreed that she is having difficulty. PT, OT, and SS have been consulted for evaluation for placement. She also had an abnormal stress test and was seen by cardiology. Will provide medical management, no [facility] at this time. - Constitutional Vitals: Temp Pulse Resp BP Pulse Ox 98.1 F 87 16 113/74 97 03/14/17 15:46 03/14/17 15:46 03/14/17 15:46 03/14/17 15:46 03/14/17 15:46 General appearance: Present: cooperative, A&O X 3, morbidly obese, pleasant, no acute distress, answers questions appropriately - Head Head exam: Present: normal inspection - Eye Eye exam: Present: normal appearance, periorbital swelling - ENT ENT exam: Absent: mucous membranes moist, normal exam - Neck Neck exam general surgery: Present: normal inspection. Absent: lymphadenopathy , tenderness - Respiratory Respiratory exam: Present: decreased breath sounds, CTAB. Absent: rales, rhonchi, stridor, wheezes - Cardiovascular Cardiovascular exam: Present: RRR, +S1. Absent: diastolic murmur, systolic murmur - GI/Abdominal GI/Abdominal exam: Present: distended, normal bowel sounds, soft. Absent: hepatomegaly, mass, tenderness - Extremities Exam Extremities exam: Present: normal capillary refill, pedal edema, warm, radial pulses palpable and symetrical. Absent: tenderness - Neurological Exam Neurological exam: Present: alert, oriented X3. Absent: facial droop, speech deficit Internal Medicine: Result - Labs CBC & Chem 7: 03/13/17 03:34 03/13/17 03:34 - ABG Interpretation ABG results: PT/INR, D-dimer PT 12.2 Seconds (9.4-12.1) H 03/13/17 03:34 D-Dimer 2601 ng/mLFEU (0-500) H 03/12/17 15:26 Consult Discharge Plan - Plan Referrals: Jennifer Donald, TRUCK SERVICE MANAGER [Primary Care Provider] -
[2017-03-14] MEDS: Isosorbide MONOnitrate (24 HR) 30 MG TAB.ER.24H PO SCH (17:57)
[2017-03-14] MEDS: Azithromycin 500 MG in D5% in Water 250 ML IVPB SCH (21:41)
[2017-03-14] MEDS: Baclofen 10 MG TABLET PO SCH (21:42)
[2017-03-15] MEDS: Ipratropium/Albuterol Neb 3 ML IH SCH ×4 (03:40→22:46)
[2017-03-15] MEDS: *HR* Heparin 5,000 UNIT/ML VIAL SQ SCH ×3 (05:14→19:52)
[2017-03-15] MEDS: Isosorbide MONOnitrate (24 HR) 30 MG TAB.ER.24H PO SCH (08:34)
[2017-03-15] MEDS: Aspirin Enteric Coated 81 MG Tablet PO SCH (08:34)
[2017-03-15] MEDS: Pantoprazole 40 MG VIAL IVP SCH (08:34)
[2017-03-15] MEDS: Acetaminophen 325 MG TABLET PO PRN (08:48)
[2017-03-15 09:31] LABS: Basophils # 0.1 K/mcL (0.0-0.2); Basophils % 0.8 %; Eosinophils # 0.3 K/mcL (0.0-0.6); Eosinophils % 4.3 %; Hematocrit 40.2 % (35.3-44.9); Hemoglobin 12.5 g/dL (11.5-15.4); Immature Granulocytes % 0.4 % (0-4); Immature Platelets 5.5 % (1.1-6.1); Lymphocytes # 1.1 K/mcL (0.6-4.6); Lymphocytes % 14.7 %; Mean Corpuscular HGB Conc 31.1 g/dL (31.6-35.5); Mean Corpuscular Volume 90.1 fL (83.0-100.0); Mean Platelet Volume 10.9 fL (9.4-12.4); Monocytes # 0.5 K/mcL (0.0-1.3); Monocytes % 6.3 %; Neutrophils # 5.5 K/mcL (1.6-8.9); Platelet Count 210 K/mcL (140-400); Red Blood Count 4.46 M/mcL (3.82-4.97); Red Cell Distribution Width 14.5 % (11.5-14.5); Segmented Neutrophils % 73.5 %
[2017-03-15 09:45] LABS: BUN/Creatinine Ratio 29 (6-26); Blood Urea Nitrogen 21 mg/dL (7-20); Carbon Dioxide 31 mEq/L (19-29); Chloride 103 mEq/L (98-109); Glucose 93 mg/dL (70-99); Osmolality,Calculated 291 (280-300); Potassium 4.3 mEq/L (3.5-4.5); Sodium 139 mEq/L (136-145); eGFR For African Americans > 60 (> 60); eGFR For Non-African Americans > 60 (> 60)
--- NOTE | 2017-03-15 12:25 | Internal Med Progress Note ---
Date of Encounter: 03/15/17 Time of Encounter: 11:25 - Assessment and plan (1) Chest pain Current Visit: Yes Status: Resolved Assessment and plan: Pt remains chest pain free today. Patient was seen by cardiology. They recommended medical management continue her aspirin and statin. They were unable to add a beta gracy at this time due to low systolic blood pressures. Patient will follow up with cardiology in the outpatient setting. Continue aircraft maintenance director labs Continue aspirin and statin Outpatient follow-up with cardiology Chest X-Ray 03/12/17 15:13 IMPRESSION: No acute cardiopulmonary abnormality. D/ / Brandon White MD / Brandon White MD Interpreting Provider: Brandon White MD Chest CTA 03/12/17 16:47 IMPRESSION: 1. Nonspecific mosaic perfusion pattern likely due to small airway disease. 2. Subtle right upper lobe airspace disease could be due to developing pneumonia. 3. 2 solid subcentimeter right pulmonary nodules. RECOMMENDATION: Fleischner Society guidelines for follow-up and management of incidentally detected pulmonary nodules: Multiple Solid Nodules: Nodule size less than 6 mm In a low-risk patient, no routine follow-up. In a high-risk patient, optional CT at 12 months. Radiology 2017 http://pubs.rsna.org/doi/full/10.1148/radiol.[email or web address] D/ / Dave Catherine MD / Dave Catherine MD Interpreting Provider: Dave Catherine MD Qualifiers: Chest pain type: other chest pain Qualified Code(s): R07.89 - Other chest pain; R07.8 - Other chest pain (2) SOB (shortness of breath) Current Visit: No Status: Acute Assessment and plan: Plan as above. Oxygen as needed, titrate to maintain sats > 92%. Lungs are clear. No respiratory distress. Pt does not require supplemental oxygen. (3) HLD (hyperlipidemia) Current Visit: Yes Status: Chronic Assessment and plan: Lipids within normal limits. Continue home dose of Zocor. Qualifiers: Hyperlipidemia type: pure hypercholesterolemia Qualified Code(s): E78.00 - Pure hypercholesterolemia, unspecified; E78.0 - Pure hypercholesterolemia (4) Thyroid disease Current Visit: Yes Status: Chronic Assessment and plan: Chronic. Continue home medication. (5) Pneumonia Current Visit: Yes Status: Acute Assessment and plan: Community-acquired pneumonia. Patient being treated with IV Rocephin and Zithromax. Patient denies fever or cough. Curb 65 score is 2 for age greater than 65 and BUN 21. Lungs are clear. She has been afebrile, pulse is within normal limits, no leukocytosis. Continue telemetry Oxygen as needed. Titrate to maintain sats greater than 92%. Continue IV antibiotics Qualifiers: Pneumonia type: due to unspecified organism Laterality: right Lung location: upper lobe of lung Qualified Code(s): J18.1 - Lobar pneumonia, unspecified organism (6) DVT prophylaxis Current Visit: Yes Status: Acute Assessment and plan: Heparin subcutaneous 3 times daily. - Time Spent With Patient less than 15 minutes - Subjective Interval history: Pt was seen and assessed at 1125a.m. Pt is resting quietly in her room, states that she is sleepy and wants to sleep. She denies pain or SOB, dyspnea, or chest pain. - Constitutional Vitals: Temp Pulse Resp BP Pulse Ox 97.8 F 70 16 105/54 93 03/15/17 11:06 03/15/17 11:06 03/15/17 11:06 03/15/17 11:06 03/15/17 11:06 General appearance: Present: cooperative, A&O X 3, morbidly obese, pleasant, no acute distress, answers questions appropriately - Head Head exam: Present: normal inspection - Eye Eye exam: Present: normal appearance, conjuntiva pink - ENT ENT exam: Present: mucous membranes moist, normal exam, normal external ear exam - Respiratory Respiratory exam: Present: CTAB. Absent: rales, respiratory distress, rhonchi, wheezes - Cardiovascular Cardiovascular exam: Present: RRR, +S1, +S2. Absent: diastolic murmur, systolic murmur - GI/Abdominal GI/Abdominal exam: Present: distended, normal bowel sounds, soft. Absent: tenderness - Extremities Exam Extremities exam: Present: warm, radial pulses palpable and symetrical. Absent : pedal edema, tenderness - Neurological Exam Neurological exam: Present: alert, oriented X3. Absent: facial droop, speech deficit - Skin Skin exam: Present: dry, intact, normal color, warm Internal Medicine: Result - Labs CBC & Chem 7: 03/15/17 08:51 03/15/17 08:51 Labs: Short CBC 03/15/17 Range/Units 08:51 WBC 7.5 (4.3-11.1) K/mcL Hgb 12.5 (11.5-15.4) g/dL Hct 40.2 (35.3-44.9) % Plt Count 210 (140-400) K/mcL Neutrophils # 5.5 (1.6-8.9) K/mcL BMP 03/15/17 08:51 Sodium 139 Potassium 4.3 Chloride 103 Carbon Dioxide 31 H BUN 21 H Creatinine 0.72 Glucose 93 Calcium 9.0 - ABG Interpretation ABG results: PT/INR, D-dimer PT 12.2 Seconds (9.4-12.1) H 03/13/17 03:34 D-Dimer 2601 ng/mLFEU (0-500) H 03/12/17 15:26 Consult Discharge Plan - Plan Referrals: Jennifer Donald, BUILDING CARPENTER HELPER [Primary Care Provider] -
[2017-03-15] MEDS: Azithromycin 500 MG in D5% in Water 250 ML IVPB SCH (19:52)
[2017-03-15] MEDS: Baclofen 10 MG TABLET PO SCH (19:53)
[2017-03-16] MEDS: Ipratropium/Albuterol Neb 3 ML IH SCH ×4 (03:43→22:13)
[2017-03-16] MEDS: *HR* Heparin 5,000 UNIT/ML VIAL SQ SCH ×3 (05:28→23:42)
[2017-03-16 05:58] LABS: Basophils # 0.1 K/mcL (0.0-0.2); Basophils % 0.9 %; Eosinophils # 0.4 K/mcL (0.0-0.6); Eosinophils % 6.3 %; Hematocrit 36.7 % (35.3-44.9); Hemoglobin 11.8 g/dL (11.5-15.4); Immature Granulocytes % 0.3 % (0-4); Lymphocytes # 1.3 K/mcL (0.6-4.6); Mean Corpuscular HGB Conc 32.2 g/dL (31.6-35.5); Mean Corpuscular Hemoglobin 28.6 pg (28.0-33.3); Mean Corpuscular Volume 89.1 fL (83.0-100.0); Mean Platelet Volume 11.6 fL (9.4-12.4); Monocytes # 0.5 K/mcL (0.0-1.3); Monocytes % 7.7 %; Neutrophils # 4.3 K/mcL (1.6-8.9); Platelet Count 184 K/mcL (140-400); Red Blood Count 4.12 M/mcL (3.82-4.97); Red Cell Distribution Width 14.6 % (11.5-14.5); Segmented Neutrophils % 64.8 %
[2017-03-16 06:14] LABS: BUN/Creatinine Ratio 28 (6-26); Blood Urea Nitrogen 19 mg/dL (7-20); Calcium 8.6 mg/dL (8.6-10.8); Carbon Dioxide 30 mEq/L (19-29); Chloride 104 mEq/L (98-109); Glucose 89 mg/dL (70-99); Osmolality,Calculated 290 (280-300); Sodium 139 mEq/L (136-145); eGFR For African Americans > 60 (> 60); eGFR For Non-African Americans > 60 (> 60)
[2017-03-16] MEDS: Isosorbide MONOnitrate (24 HR) 30 MG TAB.ER.24H PO SCH (08:38)
[2017-03-16] MEDS: Aspirin Enteric Coated 81 MG Tablet PO SCH (08:38)
[2017-03-16] MEDS: Pantoprazole 40 MG VIAL IVP SCH (08:39)
[2017-03-16] MEDS ORDERED: Azithromycin 250 MG TABLET PO SCH (16:45)
--- NOTE | 2017-03-16 18:25 | Internal Med Progress Note ---
Date of Encounter: 03/16/17 Time of Encounter: 08:15 - Assessment and plan (1) Chest pain Current Visit: Yes Status: Resolved Assessment and plan: Pt remains chest pain free today. Patient was seen by cardiology. They recommended medical management continue her aspirin and statin. They were unable to add a beta gracy at this time due to low systolic blood pressures. Patient will follow up with cardiology in the outpatient setting. Continue appian bpm developer labs Continue aspirin and statin Outpatient follow-up with cardiology Chest X-Ray 03/12/17 15:13 IMPRESSION: No acute cardiopulmonary abnormality. D/ / Brandon White MD / Brandon White MD Interpreting Provider: Brandon White MD Chest CTA 03/12/17 16:47 IMPRESSION: 1. Nonspecific mosaic perfusion pattern likely due to small airway disease. 2. Subtle right upper lobe airspace disease could be due to developing pneumonia. 3. 2 solid subcentimeter right pulmonary nodules. RECOMMENDATION: Fleischner Society guidelines for follow-up and management of incidentally detected pulmonary nodules: Multiple Solid Nodules: Nodule size less than 6 mm In a low-risk patient, no routine follow-up. In a high-risk patient, optional CT at 12 months. Radiology 2017 http://pubs.rsna.org/doi/full/10.1148/radiol.3846893949 D/ / Dave Catherine MD / Dvae Catherine MD Interpreting Provider: Dave Catherine MD Qualifiers: Chest pain type: other chest pain Qualified Code(s): R07.89 - Other chest pain; R07.8 - Other chest pain (2) SOB (shortness of breath) Current Visit: No Status: Acute Assessment and plan: Plan as above. Oxygen as needed, titrate to maintain sats > 92%. Lungs are clear. No respiratory distress. Patient qualified for home oxygen. warehouse worker to work on that tomorrow. (3) HLD (hyperlipidemia) Current Visit: Yes Status: Chronic Assessment and plan: Lipids within normal limits. Continue home dose of Zocor. Qualifiers: Hyperlipidemia type: pure hypercholesterolemia Qualified Code(s): E78.00 - Pure hypercholesterolemia, unspecified; E78.0 - Pure hypercholesterolemia (4) Thyroid disease Current Visit: Yes Status: Chronic Assessment and plan: Chronic. Continue home medication. (5) Pneumonia Current Visit: Yes Status: Acute Assessment and plan: Community-acquired pneumonia. Patient being treated with IV Rocephin and Zithromax. Patient denies fever or cough. Curb 65 score is 2 for age greater than 65 and BUN 21. Lungs are clear. She has been afebrile, pulse is within normal limits, no leukocytosis. Continue telemetry Oxygen as needed. Titrate to maintain sats greater than 92%. Patient has been transitioned to by mouth Zithromax. Qualifiers: Pneumonia type: due to unspecified organism Laterality: right Lung location: upper lobe of lung Qualified Code(s): J18.1 - Lobar pneumonia, unspecified organism (6) DVT prophylaxis Current Visit: Yes Status: Acute Assessment and plan: Heparin subcutaneous 3 times daily. - Time Spent With Patient less than 15 minutes - Subjective Interval history: Pt was seen and assessed at 8:15 AM. Patient was sitting up at bedside, alert, awake, oriented. She denies chest pain. She denies shortness of breath, dyspnea, cough, abdominal pain, dizziness. She did have a headache yesterday that has resolved. Head CT was negative. warehouse worker spoke with patient, PT recommended the patient go to inpatient swing bed. warehouse worker is not here, I am not sure why this was not investigated. Patient was set up with [facility] on aging. Apparently patient has a large outstanding bill for electricity, she is on a fixed income and is unable to pay the bill. Currently she has no electricity. Patient did qualify for oxygen, again social studies department chair will have to work on this again tomorrow. She cannot go home on oxygen with no electricity. - Constitutional Vitals: Temp Pulse Resp BP Pulse Ox 97.9 F 75 14 115/77 95 03/16/17 14:59 03/16/17 14:59 03/16/17 14:59 03/16/17 14:59 03/16/17 17:12 General appearance: Present: cooperative, A&O X 3, morbidly obese, pleasant, no acute distress, answers questions appropriately - Head Head exam: Present: normal inspection - Eye Eye exam: Present: normal appearance, conjuntiva pink - ENT ENT exam: Present: mucous membranes moist, normal exam, normal external ear exam - Neck Neck exam general surgery: Present: normal inspection. Absent: lymphadenopathy , tenderness - Respiratory Respiratory exam: Present: CTAB. Absent: decreased breath sounds, rales, respiratory distress, rhonchi, stridor, wheezes - Cardiovascular Cardiovascular exam: Present: RRR, +S1, +S2. Absent: diastolic murmur, systolic murmur - GI/Abdominal GI/Abdominal exam: Present: distended, soft. Absent: hepatomegaly, tenderness - Extremities Exam Extremities exam: Present: warm, radial pulses palpable and symetrical. Absent : pedal edema, tenderness - Neurological Exam Neurological exam: Present: alert, no focal deficits. Absent: facial droop, speech deficit Internal Medicine: Result - Labs CBC & Chem 7: 03/16/17 04:56 03/16/17 04:56 Labs: Short CBC 03/16/17 Range/Units 04:56 WBC 6.7 (4.3-11.1) K/mcL Hgb 11.8 (11.5-15.4) g/dL Hct 36.7 (35.3-44.9) % Plt Count 184 (140-400) K/mcL Neutrophils # 4.3 (1.6-8.9) K/mcL BMP 03/16/17 04:56 Sodium 139 Potassium 4.0 Chloride 104 Carbon Dioxide 30 H BUN 19 Creatinine 0.67 Glucose 89 Calcium 8.6 - ABG Interpretation ABG results: PT/INR, D-dimer PT 12.2 Seconds (9.4-12.1) H 03/13/17 03:34 D-Dimer 2601 ng/mLFEU (0-500) H 03/12/17 15:26 Consult Discharge Plan - Plan Referrals: Jennifer Donald CNP [Primary Care Provider] - 03/19/17 3:00 pm
[2017-03-16] MEDS: Baclofen 10 MG TABLET PO SCH (20:56)
[2017-03-17] MEDS: Ipratropium/Albuterol Neb 3 ML IH SCH ×4 (04:15→21:30)
[2017-03-17] MEDS: *HR* Heparin 5,000 UNIT/ML VIAL SQ SCH ×3 (05:11→20:20)
[2017-03-17] MEDS: Aspirin Enteric Coated 81 MG Tablet PO SCH (08:37)
[2017-03-17] MEDS: Isosorbide MONOnitrate (24 HR) 30 MG TAB.ER.24H PO SCH (08:37)
[2017-03-17] MEDS: levoFLOXacin 750 MG TABLET PO SCH (13:35)
--- NOTE | 2017-03-17 15:58 | Internal Med Progress Note ---
Date of Encounter: 03/17/17 Time of Encounter: 12:30 - Assessment and plan (1) Pneumonia Current Visit: Yes Status: Acute Assessment and plan: Community-acquired pneumonia with unknown bacterial etiology. Patient was being treated with IV Rocephin and Zithromax-she is now on room air-changed to by mouth levofloxacin. Curb 65 score is 2 for age greater than 65 and BUN 21. Lungs are clear to auscultation bilaterally with no increased work of breathing present on examination. No leukocytosis. Afebrile. Vital signs stable. Tolerating room air-we will monitor. Qualifiers: Pneumonia type: due to unspecified organism Laterality: right Lung location: upper lobe of lung Qualified Code(s): J18.1 - Lobar pneumonia, unspecified organism (2) Generalized weakness Current Visit: Yes Status: Acute Assessment and plan: OT and PT have recommended inpatient/swing bed placement. Patient is reluctant but amenable to inpatient rehabilitation. Awaiting placement, per social media project manager , awaiting precertification through her insurance (3) Has no electricity in home Current Visit: Yes Status: Acute Assessment and plan: Patient claiming that she has had no electricity at her house for the past month. She claims that she owes $5000 total with 2000 being due upfront. She does have running water. conference services director on board-patient okayed for us to contact [employer] on her behalf. (4) Chest pain Current Visit: Yes Status: Resolved Assessment and plan: Pt remains chest pain free today. Patient was seen by cardiology recommended medical management with aspirin, statin, Imdur and cleared her for outpatient follow-up. Unable to add beta gracy secondary to low systolic blood pressures. Imaging consistent with pneumonia, low suspicion for acute coronary syndrome. Chest X-Ray 03/12/17 15:13 IMPRESSION: No acute cardiopulmonary abnormality. D/ / Brandon White MD / Brandon White MD Interpreting Provider: Brandon White MD Chest CTA 03/12/17 16:47 IMPRESSION: 1. Nonspecific mosaic perfusion pattern likely due to small airway disease. 2. Subtle right upper lobe airspace disease could be due to developing pneumonia. 3. 2 solid subcentimeter right pulmonary nodules. RECOMMENDATION: Fleischner Society guidelines for follow-up and management of incidentally detected pulmonary nodules: Multiple Solid Nodules: Nodule size less than 6 mm In a low-risk patient, no routine follow-up. In a high-risk patient, optional CT at 12 months. Radiology 2017 http://pubs.rsna.org/doi/full/10.1148/radiol.8747951907 D/ / Dave Catherine MD / Dave Catherine MD Interpreting Provider: Dave Catherine MD Qualifiers: Chest pain type: other chest pain Qualified Code(s): R07.89 - Other chest pain; R07.8 - Other chest pain (5) DVT prophylaxis Current Visit: Yes Status: Acute Assessment and plan: Subcutaneous heparin while admitted (6) Acute respiratory failure with hypoxia Current Visit: Yes Status: Resolved Assessment and plan: We will perform another ambulation pulse oximetry test. (7) SOB (shortness of breath) Current Visit: No Status: Resolved Assessment and plan: Patient denies shortness of breath above norm. She is currently tolerating room air. No increased work of breathing. We will continue her on room air and monitor. (8) HLD (hyperlipidemia) Current Visit: Yes Status: Chronic Assessment and plan: Lipids within normal limits. Continue home dose of Zocor. Qualifiers: Hyperlipidemia type: pure hypercholesterolemia Qualified Code(s): E78.00 - Pure hypercholesterolemia, unspecified; E78.0 - Pure hypercholesterolemia (9) Thyroid disease Current Visit: Yes Status: Chronic Assessment and plan: TSH elevated earlier this year in August however free T4 at that time was normal, we will recheck (10) Morbid obesity with BMI of 40.0-44.9, adult Current Visit: Yes Status: Chronic - Subjective Interval history: Patient seen and examined. On examination, patient sitting upright in her chair. Patient alert and oriented 3 and denies pain or shortness of breath at this time. Patient is continually asking when she gets to go home. - Constitutional Vitals: Temp Pulse Resp BP Pulse Ox 98.0 F 73 16 102/67 94 03/17/17 15:38 03/17/17 15:38 03/17/17 15:38 03/17/17 15:38 03/17/17 15:38 General appearance: Present: cooperative, A&O X 3, morbidly obese, pleasant, no acute distress, answers questions appropriately - Head Head exam: Present: atraumatic, normocephalic - Eye Eye exam: Present: PERRL, conjuntiva pink, sclera anicteric Pupils: Present: PERRL - Neck Neck exam general surgery: Present: supple, trachea midline. Absent: lymphadenopathy - Respiratory Respiratory exam: Present: CTAB. Absent: accessory muscle use, rales, respiratory distress, rhonchi, wheezes - Cardiovascular Cardiovascular exam: Present: RRR, +S1, +S2. Absent: diastolic murmur, gallop, rubs, systolic murmur - GI/Abdominal GI/Abdominal exam: Present: normal bowel sounds, soft, no peritoneal signs. Absent: distended, tenderness - Extremities Exam Extremities exam: Present: warm, radial pulses palpable and symetrical. Absent : calf tenderness, cyanotic, pedal edema - Neurological Exam Neurological exam: Present: alert, CN II-XII intact, oriented X3, no focal deficits, strengths equal and symetr throughout. Absent: pronater drift, facial droop, speech deficit - Skin Skin exam: Present: dry, intact, normal color, warm Internal Medicine: Result - Labs CBC & Chem 7: 03/16/17 04:56 03/16/17 04:56 - ABG Interpretation ABG results: PT/INR, D-dimer PT 12.2 Seconds (9.4-12.1) H 03/13/17 03:34 D-Dimer 2601 ng/mLFEU (0-500) H 03/12/17 15:26 Consult Discharge Plan - Plan Referrals: Jennifer Donald, WORK FROM HOME [Primary Care Provider] - 03/19/17 3:00 pm
[2017-03-17] MEDS: Baclofen 10 MG TABLET PO SCH (20:16)
[2017-03-18] MEDS: Ipratropium/Albuterol Neb 3 ML IH SCH ×4 (04:03→23:24)
[2017-03-18 05:04] LABS: Thyroid Stimulating Hormone 11.666 mcIU/mL (0.350-4.840)
[2017-03-18 05:08] LABS: Triiodothyronine (T3) Free 1.9 pg/mL (1.71-3.71)
[2017-03-18] MEDS: *HR* Heparin 5,000 UNIT/ML VIAL SQ SCH ×3 (05:37→20:31)
[2017-03-18] MEDS: Isosorbide MONOnitrate (24 HR) 30 MG TAB.ER.24H PO SCH (08:25)
[2017-03-18] MEDS: Aspirin Enteric Coated 81 MG Tablet PO SCH (08:25)
[2017-03-18] MEDS: levoFLOXacin 750 MG TABLET PO SCH (08:25)
--- NOTE | 2017-03-18 17:46 | Internal Med Progress Note ---
Date of Encounter: 03/18/17 Time of Encounter: 12:30 - Assessment and plan (1) Pneumonia Current Visit: Yes Status: Acute Assessment and plan: Community-acquired pneumonia with unknown bacterial etiology. Patient was being treated with IV Rocephin and Zithromax-she is now on room air-changed to by mouth levofloxacin yesterday. Curb 65 score is 2 for age greater than 65 and BUN 21. Lungs are clear to auscultation bilaterally with no increased work of breathing present on examination. No leukocytosis. Afebrile. Vital signs stable. Tolerating room air-we will monitor. Qualifiers: Pneumonia type: due to unspecified organism Laterality: right Lung location: upper lobe of lung Qualified Code(s): J18.1 - Lobar pneumonia, unspecified organism (2) Generalized weakness Current Visit: Yes Status: Acute Assessment and plan: OT and PT have recommended inpatient/swing bed placement. Patient is reluctant but amenable to inpatient rehabilitation. Awaiting placement, per social media content manager , awaiting precertification through her insurance (3) Has no electricity in home Current Visit: Yes Status: Acute Assessment and plan: Patient claiming that she has had no electricity at her house for the past month. She claims that she owes $5000 total with 2000 being due upfront. She does have running water. services executive on board-patient okayed for us to contact [employer] on her behalf. (4) Chest pain Current Visit: Yes Status: Resolved Assessment and plan: Pt remains chest pain free today. Patient was seen by cardiology recommended medical management with aspirin, statin, Imdur and cleared her for outpatient follow-up. Unable to add beta gracy secondary to low systolic blood pressures. Imaging consistent with pneumonia, low suspicion for acute coronary syndrome. Chest X-Ray 03/12/17 15:13 IMPRESSION: No acute cardiopulmonary abnormality. D/ / Brandon White MD / Brandon White MD Interpreting Provider: Brandon White MD Chest CTA 03/12/17 16:47 IMPRESSION: 1. Nonspecific mosaic perfusion pattern likely due to small airway disease. 2. Subtle right upper lobe airspace disease could be due to developing pneumonia. 3. 2 solid subcentimeter right pulmonary nodules. RECOMMENDATION: Fleischner Society guidelines for follow-up and management of incidentally detected pulmonary nodules: Multiple Solid Nodules: Nodule size less than 6 mm In a low-risk patient, no routine follow-up. In a high-risk patient, optional CT at 12 months. Radiology 2017 http://pubs.rsna.org/doi/full/10.1148/radiol.[email or web address] D/ / Dave Catherine MD / Dave Catherine MD Interpreting Provider: Dave Catherine MD Qualifiers: Chest pain type: other chest pain Qualified Code(s): R07.89 - Other chest pain; R07.8 - Other chest pain (5) DVT prophylaxis Current Visit: Yes Status: Acute Assessment and plan: Subcutaneous heparin while admitted (6) Acute respiratory failure with hypoxia Current Visit: Yes Status: Resolved Assessment and plan: We will perform another ambulation pulse oximetry test. She is tolerating room air well. (7) SOB (shortness of breath) Current Visit: No Status: Resolved Assessment and plan: Patient denies shortness of breath above norm. She is currently tolerating room air. No increased work of breathing. We will continue her on room air and monitor. (8) HLD (hyperlipidemia) Current Visit: Yes Status: Chronic Assessment and plan: Lipids within normal limits. Continue home dose of Zocor. Qualifiers: Hyperlipidemia type: pure hypercholesterolemia Qualified Code(s): E78.00 - Pure hypercholesterolemia, unspecified; E78.0 - Pure hypercholesterolemia (9) Thyroid disease Current Visit: Yes Status: Chronic Assessment and plan: TSH elevated but free T3 and T4 are normal. Subclinical hypothyroidism not likely associated to her symptoms. Follow-up outpatient. (10) Morbid obesity with BMI of 40.0-44.9, adult Current Visit: Yes Status: Chronic - Subjective Interval history: Patient seen and examined. On examination, patient sitting upright in her chair. Patient alert and oriented 3 and denies pain or shortness of breath at this time. Patient has a lot of questions regarding a new apartment that her daughter is trying to get her an she was referred to her daughter for further discussion. She also has further questions regarding ECF placement, questions answered at this time. She denies further concerns. - Constitutional Vitals: Temp Pulse Resp BP Pulse Ox 97.7 F 85 17 118/78 97 03/18/17 16:05 03/18/17 16:05 03/18/17 16:05 03/18/17 16:05 03/18/17 16:05 General appearance: Present: cooperative, A&O X 3, morbidly obese, pleasant, no acute distress, answers questions appropriately - Head Head exam: Present: atraumatic, normocephalic - Eye Eye exam: Present: PERRL, conjuntiva pink, sclera anicteric Pupils: Present: PERRL - Neck Neck exam general surgery: Present: supple, trachea midline. Absent: lymphadenopathy - Respiratory Respiratory exam: Present: CTAB. Absent: accessory muscle use, rales, respiratory distress, rhonchi, wheezes - Cardiovascular Cardiovascular exam: Present: RRR, +S1, +S2. Absent: diastolic murmur, gallop, rubs, systolic murmur - GI/Abdominal GI/Abdominal exam: Present: normal bowel sounds, soft, no peritoneal signs. Absent: distended, tenderness - Extremities Exam Extremities exam: Present: warm, radial pulses palpable and symetrical. Absent : calf tenderness, cyanotic, pedal edema - Neurological Exam Neurological exam: Present: alert, CN II-XII intact, oriented X3, no focal deficits, strengths equal and symetr throughout. Absent: pronater drift, facial droop, speech deficit - Skin Skin exam: Present: dry, intact, normal color, warm Internal Medicine: Result - Labs CBC & Chem 7: 03/16/17 04:56 03/16/17 04:56 - ABG Interpretation ABG results: PT/INR, D-dimer PT 12.2 Seconds (9.4-12.1) H 03/13/17 03:34 D-Dimer 2601 ng/mLFEU (0-500) H 03/12/17 15:26 Consult Discharge Plan - Plan Referrals: Jennifer Donald COMMUNICATIONS ASSOCIATE [Primary Care Provider] - 03/19/17 3:00 pm
[2017-03-18] MEDS: Baclofen 10 MG TABLET PO SCH (20:30)
[2017-03-19] MEDS: Ipratropium/Albuterol Neb 3 ML IH SCH ×3 (05:20→15:46)
[2017-03-19] MEDS: *HR* Heparin 5,000 UNIT/ML VIAL SQ SCH ×2 (06:00→14:20)
[2017-03-19] MEDS: Isosorbide MONOnitrate (24 HR) 30 MG TAB.ER.24H PO SCH (09:16)
[2017-03-19] MEDS: Aspirin Enteric Coated 81 MG Tablet PO SCH (09:16)
[2017-03-19] MEDS: levoFLOXacin 750 MG TABLET PO SCH (09:16)
[2017-03-19 11:16] VITALS: BP 115/79
--- NOTE | 2017-03-19 15:59 | Discharge Summary ---
Date of Encounter: 03/19/17 Time of Encounter: 09:30 (and 1430) - Discharge Diagnosis (1) Pneumonia Priority: Primary Status: Acute Comments: Community-acquired pneumonia with unknown bacterial etiology. Patient was being treated with IV Rocephin and Zithromax-she transitioned to room air- changed to by mouth levofloxacin Lungs are clear to auscultation bilaterally with no increased work of breathing present on examination. No leukocytosis. Afebrile. Vital signs stable. Tolerating room air-we will monitor. Qualifiers: Pneumonia type: due to unspecified organism Laterality: right Lung location: upper lobe of lung Qualified Code(s): J18.1 - Lobar pneumonia, unspecified organism (2) Generalized weakness Priority: Primary Status: Acute Comments: After we finally received prior authorization from her insurance to place the patient at [facility], the patient then refused stating she wanted to go home with home health. She is aware of the risks versus benefits and chooses to go home. (3) Has no electricity in home Priority: Primary Status: Acute Comments: Social work was on board during this admission. Patient is aware that she is going home to no electricity as is her daughter. They still both insist that the patient go home instead of going to rehabilitation. [facility] agency on aging is already involved and is set up to see her (4) Chest pain Priority: Primary Status: Resolved Qualifiers: Chest pain type: other chest pain Qualified Code(s): R07.89 - Other chest pain; R07.8 - Other chest pain (5) DVT prophylaxis Priority: Primary Status: Acute Comments: Subcutaneous heparin while admitted (6) Acute respiratory failure with hypoxia Priority: Primary Status: Resolved (7) SOB (shortness of breath) Priority: Primary Status: Resolved (8) HLD (hyperlipidemia) Priority: Secondary Status: Chronic Comments: Lipids within normal limits. Continue home dose of Zocor. Qualifiers: Hyperlipidemia type: pure hypercholesterolemia Qualified Code(s): E78.00 - Pure hypercholesterolemia, unspecified; E78.0 - Pure hypercholesterolemia (9) Thyroid disease Priority: Secondary Status: Chronic Comments: TSH elevated but free T3 and T4 are normal. Subclinical hypothyroidism not likely associated to her symptoms. Follow-up outpatient. (10) Morbid obesity with BMI of 40.0-44.9, adult Priority: Secondary Status: Chronic - Discharge Medications Prescriptions: Atorvastatin [Lipitor] 40 mg PO HS #30 tab Isosorbide MONOnitrate (24 HR) [Imdur] 30 mg PO DAILY #30 levoFLOXacin [Levaquin] 750 mg PO DAILY #2 tab Home Medications: Aspirin Enteric Coated [Aspirin EC] 81 mg PO DAILY 03/12/17 [History] Baclofen [Lioresal] 10 mg PO HS 03/12/17 [History] Levothyroxine [Synthroid] 125 mcg PO 0630 03/12/17 [History] Meloxicam [Mobic] 15 mg PO DAILY 03/12/17 [History] Atorvastatin [Lipitor] 40 mg PO HS #30 tab 03/19/17 [Rx] Isosorbide MONOnitrate (24 HR) [Imdur] 30 mg PO DAILY #30 03/19/17 [Rx] levoFLOXacin [Levaquin] 750 mg PO DAILY #2 tab 03/19/17 [Rx] Allergies/Adverse Reactions: Allergies etodolac [From Lodine] Allergy (Verified 10/29/16 20:55) Hives Date of admission: 03/12/17 18:42 Primary care physician: Jennifer Donald CNP Consults: 03/14/17 11:28 Consult to Cardiology [CONS] Routine Comment: Consulting Provider: Angela Vera Reason for Consult: abnormal stress Time Notified: 11:29 Call Completed: Yes 03/16/17 08:49 Consult to Occupational Therapy [CONS] Routine Comment: Evaluate, develop and implement POC Reason for Consult: eval Consult to Physical Therapy [CONS] Routine Comment: Evaluate, develop and implement POC Reason for Consult: eval 03/17/17 09:49 Consult to Knit Goods Washer [CONS] Routine Reason for SW Consult: OT/PT rec inpatient/swing. patient qualified for Oxygen- no home electric. please eval and advise. will requalify for 02 Discharging clinician: Jayashree Hicks Anticipated date of discharge: 03/19/17 (refusing ECF placement- home with ) - Patient Status Disposition: Home Health Service Condition: Fair Functional capacity at discharge: independent ambulation Overall status at discharge: patient is progressing back to baseline - Discharge Instructions Instructions: Chest Pain (DC) Follow Up With: Jennifer Donald CNP [Primary Care Provider] - 03/19/17 3:00 pm Cardiology [facility] [Provider Group] Additional Instructions: Primary care provider as scheduled, follow-up with cardiology within 2 weeks - Diet and Activity Activity: increase activity as tolerated Diet: low fat, low cholesterol Hospital course: Ms. Cardenas is a 66 year old female with past medical history of hyperlipidemia, hypothyroidism, morbid obesity. Patient presented to the emergency department with a chief complaint of chest pain. Patient stating after she ate lunch, she began to feel sharp, stabbing and constant pain in her chest. She states that she also experienced shortness of breath, nausea, and diaphoresis but the pain. She described the pain as pleuritic and denied radiation. She reports that when she was transported, she was given 3 aspirin which seemed to help with her pain. She has no prior cardiac history. She denied weakness, abdominal pain, vomiting, cough, syncope. Workup in the emergency department revealing a negative chest x-ray but chest CTA revealing findings consistent with right upper lobe pneumonia. Patient was started on IV ceftriaxone and azithromycin and admitted to the hospitalist service for further evaluation and management. Patient was initially requiring supplemental oxygenation and she did at that time qualify for home oxygen. This was an issue as the patient does not currently have electricity in her home. She reports that she owes $5000 total with $2000 being due upfront. She does endorse that she does have running water. director of clinical services was brought on board. For her chest pain, patient had an echocardiogram that was unremarkable with an ejection fraction of 60%. She had an abnormal stress test so cardiology was brought on board. Cardiology recommended medical management with aspirin, statin, and the addition of Imdur to her regimen with the recommendation of follow-up 2 weeks after discharge. Of note, we are unable to add a beta gracy to her regimen secondary to low systolic blood pressures. Regarding her generalized weakness, OT and PT both recommended inpatient/swing bed placement. Patient's clinical picture improved while we were awaiting for a prior authorization for her insurance company to have her placed. She was admitted and observed over the course of 7 nights and the lengthy admission was secondary to waiting on a prior authorization from her insurance company. By the time she was accepted at signatures by her insurance company, patient had been transitioned to room air and she no longer had shortness of breath above her norm. She no longer required supplemental oxygenation and she was transitioned to by mouth levofloxacin. While we still recommended inpatient rehabilitation, patient and her daughter decided that they wanted to go home with home health. Patient was advised of the risks versus benefits of choosing home health over going inpatient and she still wanted to go home with home health services. She was discharged home in stable condition with close outpatient follow-up recommended. Of note, patient are has the [facility] on [facility]ging set up to assess whether or not she needs passport. Also of note, social work during this admission spoke to [employer] to report that they were unable to assist the patient financially and at that time, APS stated that she did not qualify for any services per [employer]. ITS Impressions Head CT 03/15/17 17:00 IMPRESSION: No acute intracranial abnormality. D/ / Reno Crowder / Reno Crowder Interpreting Provider: Reno Crowder Chest X-Ray 03/12/17 15:13 IMPRESSION: No acute cardiopulmonary abnormality. D/ / Brandon White MD / Brandon White MD Interpreting Provider: Brandon White MD Chest CTA 03/12/17 16:47 IMPRESSION: 1. Nonspecific mosaic perfusion pattern likely due to small airway disease. 2. Subtle right upper lobe airspace disease could be due to developing pneumonia. 3. 2 solid subcentimeter right pulmonary nodules. RECOMMENDATION: Fleischner Society guidelines for follow-up and management of incidentally detected pulmonary nodules: Multiple Solid Nodules: Nodule size less than 6 mm In a low-risk patient, no routine follow-up. In a high-risk patient, optional CT at 12 months. Radiology 2017 http://pubs.rsna.org/doi/full/[email or web address] D/ / Dave Catherine MD / Dave Catherine MD Interpreting Provider: Dave Catherine MD Echocardiogram impressions: LVEF 60%. Normal left ventricle size and systolic function. Normal diastolic function of the left ventricle. Normal right ventricular size and function. No significant valvular dysfunction. No pulmonary hypertension. Regadenosen nuclear 2 day stress impression: Gated LVEF equals 63%. There is a small size, mild-moderate intensity, predominantly reversible perfusion defect involving the basal-mid inferior septum. Findings are consistent with a small area of reversible myocardial ischemia. - Time Spent with Patient Total time spent providing and/or coordinating discharge services: - Constitutional Vitals: Temp Pulse Resp BP Pulse Ox 97.5 F L 90 16 115/79 97 03/19/17 11:14 03/19/17 11:14 03/19/17 11:14 03/19/17 11:14 03/19/17 11:14 General appearance: Present: cooperative, A&O X 3, morbidly obese, pleasant, no acute distress, answers questions appropriately - Head Head exam: Present: atraumatic, normocephalic - Eye Eye exam: Present: PERRL, conjuntiva pink, sclera anicteric Pupils: Present: PERRL - Neck Neck exam general surgery: Present: supple, trachea midline. Absent: lymphadenopathy - Respiratory Respiratory exam: Present: CTAB. Absent: accessory muscle use, rales, respiratory distress, rhonchi, wheezes - Cardiovascular Cardiovascular exam: Present: RRR, +S1, +S2. Absent: diastolic murmur, gallop, rubs, systolic murmur - GI/Abdominal GI/Abdominal exam: Present: normal bowel sounds, soft, no peritoneal signs. Absent: distended, tenderness - Extremities Exam Extremities exam: Present: warm, radial pulses palpable and symetrical. Absent : calf tenderness, cyanotic, pedal edema - Neurological Exam Neurological exam: Present: alert, CN II-XII intact, oriented X3, no focal deficits, strengths equal and symetr throughout. Absent: pronater drift, facial droop, speech deficit - Skin Skin exam: Present: dry, intact, pallor, warm
--- NOTE | 2017-03-19 16:20 | Physician Discharge Referral ---
Home Health/Hosp Referral Info Transfer to: Home Health Attending Provider: Baron Hicks CNP Provider in Charge Post Discharge: PCP - Diagnosis (1) Pneumonia Priority: Primary Status: Acute (2) Generalized weakness Priority: Primary Status: Acute (3) Has no electricity in home Priority: Primary Status: Acute (4) Chest pain Priority: Primary Status: Resolved (5) DVT prophylaxis Priority: Primary Status: Acute (6) Acute respiratory failure with hypoxia Priority: Primary Status: Resolved (7) SOB (shortness of breath) Priority: Primary Status: Resolved (8) HLD (hyperlipidemia) Priority: Secondary Status: Chronic (9) Thyroid disease Priority: Secondary Status: Chronic (10) Morbid obesity with BMI of 40.0-44.9, adult Priority: Secondary Status: Chronic - Respiratory Orders Smoking Cessation: Smoking cessation has been advised. For more information, call the [place] Tobacco Quit Line at 1-824-UOTE-NOW. - Diet/Nutrition Diet/Nutrition Orders: Cardiac - Activity Activity Orders: Ambulate (per PT) - Services Needed Following services are medically necessary services: Nursing, Home Health Aide, Physical Therapy, Occupational Therapy - Transfer Medications Prescriptions: Atorvastatin [Lipitor] 40 mg PO HS #30 tab Isosorbide MONOnitrate (24 HR) [Imdur] 30 mg PO DAILY #30 levoFLOXacin [Levaquin] 750 mg PO DAILY #2 tab Home Medications: Aspirin Enteric Coated [Aspirin EC] 81 mg PO DAILY 03/12/17 [History] Baclofen [Lioresal] 10 mg PO HS 03/12/17 [History] Levothyroxine [Synthroid] 125 mcg PO 0630 03/12/17 [History] Meloxicam [Mobic] 15 mg PO DAILY 03/12/17 [History] Atorvastatin [Lipitor] 40 mg PO HS #30 tab 03/19/17 [Rx] Isosorbide MONOnitrate (24 HR) [Imdur] 30 mg PO DAILY #30 03/19/17 [Rx] levoFLOXacin [Levaquin] 750 mg PO DAILY #2 tab 03/19/17 [Rx] Allergies/Adverse Reactions: Allergies etodolac [From Lodine] Allergy (Verified 10/29/16 20:55) Hives Certification: Further, I certify that my clinical findings support that this patient is homebound (i.e. absences from home require considerable and taxing effort and are for medical reasons or hinduism services or infrequently or short duration when for other reasons) because: Homebound Reason: Patient requires assistance of a person or device to safely leave home, Leaving home requires considerable and taxing effort due to condition Attestation: My signature below is to certify that this patient is under my care and that I, or nurse practitioner, or a physician's assistant sales manager working with me, has a face-to -face encounter with this patient.
== END 2017-03-19 17:15 | disposition home health service (06) ==
LOC: EMEROO 14:41 → 3BNU 14:41 → SUATTDRO 18:42 → 3BNU 19:33
PROVIDERS: ADMIT Nurse Practitioner Family; ATTEND Nurse Practitioner Family